=== PATIENT | female | born 1955 | race Caucasian/White ===

== ENCOUNTER 2021-07-15 06:54 | Day surgery (SDC) | payer MEDICARE ==
[2021-07-15] MEDS: Lactated Ringers 1,000 ML IV SCH ×2 (06:30→10:40)
[~2021-07-15 06:54] MED LIST: Acetaminophen 325 MG Tab ONE; Acetaminophen 325 MG Tab PO SCH; Lidocaine 1%/Sod Bicarbonate in NS 8.4% 1 ML Syringe IDERM PRN; Midazolam 1 MG/ML 2 ML SDV ONE; Morphine 8 MG, EPINEPHrine 0.3 MG, Cefuroxime 750 MG, Ketorolac 30 MG, Sodium Chloride ... PRN; Pregabalin 25 MG Cap ONE; Pregabalin 25 MG Cap PO SCH; Sodium Chloride 0.9% 10 ML Syringe FLUSH PRN; Sodium Chloride 0.9% 10 ML Syringe FLUSH SCH; Vancomycin 1 GM SDV ONE; oxyCODONE ER 10 MG TAB.ER ONE; oxyCODONE ER 10 MG TAB.ER PO SCH
[2021-07-15] MEDS ORDERED: Bupivacaine 0.25% 10 ML SDV ONE (07:08)
[2021-07-15] MEDS ORDERED: Triamcinolone Acetonide 40 MG/ML 1 ML SDV ONE (07:08)
[2021-07-15] MEDS ORDERED: Lidocaine 1% 5 ML VIAL ONE (07:20)
[2021-07-15] MEDS ORDERED: Propofol 200 MG/20 ML SDV ONE ×2 (07:20→08:26)
[2021-07-15] MEDS ORDERED: ceFAZolin 1 GM Vial ONE (07:34)
[2021-07-15] MEDS ORDERED: Ondansetron 4 MG/2 ML SDV ONE (07:54)
[2021-07-15] MEDS ORDERED: Ondansetron 4 MG/2 ML SDV IVPUSH PRN (09:11)
[2021-07-15] MEDS ORDERED: HYDROmorphone 0.5 MG/0.5 ML Syringe IVPUSH PRN (09:11)
[2021-07-15] MEDS ORDERED: fentaNYL 100 MCG/2 ML SDV IVPUSH PRN (09:11)
[2021-07-15] MEDS ORDERED: Ropivacaine 0.5% 5 MG/ML 30 ML SDV ONE (09:17)
[2021-07-15] MEDS ORDERED: traMADol 50 MG Tab PO ONE (12:02)
== END 2021-07-15 13:36 | disposition home or self-care (01) ==
LOC: JD.SDS 06:54
PROVIDERS: ATTEND Orthopaedic Surgery
DX: M17.0 Bilateral primary osteoarthritis of knee (principal); I10 Essential (primary) hypertension; K21.9 Gastro-esophageal reflux disease without esophagitis; Z91.011 Allergy to milk products; Z88.8 Allergy status to other drugs, medicaments and biological substances; Z88.5 Allergy status to narcotic agent; Z79.899 Other long term (current) drug therapy; Z90.49 Acquired absence of other specified parts of digestive tract; Z98.890 Other specified postprocedural states
CPT/HCPCS: 20610; 27447; 73560; 97110; 97116; 97161; A9270; C1713; C1776; J0171; J0690; J0697; J1885; J2250; J2270; J2370; J2405; J2704; J2795; J3301; J3370; J3490; J7120; 01402; 64447; 76942

== ENCOUNTER 2021-12-07 10:33 | Day surgery (SDC) | payer MEDICARE ==
[~2021-12-07 10:33] MED LIST changes: -Acetaminophen 325 MG Tab ONE; -Acetaminophen 325 MG Tab PO SCH; +Lactated Ringers 1,000 ML IV SCH; -Pregabalin 25 MG Cap ONE; -Pregabalin 25 MG Cap PO SCH; +Propofol 200 MG/20 ML SDV ONE; +Scopolamine 1.5 MG Transdermal Patch TRDERM ONE; +ceFAZolin 2 GM Vial ONE; +fentaNYL 100 MCG/2 ML SDV ONE; -oxyCODONE ER 10 MG TAB.ER ONE; -oxyCODONE ER 10 MG TAB.ER PO SCH
[2021-12-07] MEDS ORDERED: Scopolamine 1.5 MG Transdermal Patch TRDERM ONE (10:47)
[2021-12-07] MEDS ORDERED: Ropivacaine 0.5% 5 MG/ML 30 ML SDV ONE (11:13)
[2021-12-07] MEDS ORDERED: EPINEPHrine 1 MG/ML SDV ONE (11:13)
[2021-12-07] MEDS ORDERED: Lidocaine 1% 4 ML ONE (12:12)
[2021-12-07] MEDS ORDERED: Phenylephrine HCl In 0.9% NaCl 1 MG/10 ML Vial ONE (12:15)
[2021-12-07] MEDS ORDERED: fentaNYL 100 MCG/2 ML SDV IVPUSH PRN (12:46)
[2021-12-07] MEDS ORDERED: HYDROmorphone 0.5 MG/0.5 ML Syringe IVPUSH PRN (12:46)
[2021-12-07] MEDS ORDERED: Ondansetron 4 MG/2 ML SDV IVPUSH PRN (12:46)
[2021-12-07] MEDS ORDERED: Dexamethasone 4 MG/ML 5 ML MDV ONE (13:35)
[2021-12-07] MEDS ORDERED: Ondansetron 4 MG/2 ML SDV ONE (13:35)
[2021-12-07] MEDS ORDERED: traMADol 50 MG Tab PO PRN (15:18)
== END 2021-12-07 16:10 | disposition home or self-care (01) ==
LOC: JD.SDS 10:33
PROVIDERS: ATTEND Orthopaedic Surgery
DX: M17.11 Unilateral primary osteoarthritis, right knee (principal); I10 Essential (primary) hypertension; M85.89 Other specified disorders of bone density and structure, multiple sites; K21.9 Gastro-esophageal reflux disease without esophagitis; Z79.899 Other long term (current) drug therapy; Z88.8 Allergy status to other drugs, medicaments and biological substances; Z91.02 Food additives allergy status; Z91.011 Allergy to milk products; Z98.890 Other specified postprocedural states
CPT/HCPCS: 0055T; 27447; 36415; 73560; 85610; 97161; A9270; C1713; C1776; J0171; J0690; J0697; J1100; J1885; J2250; J2270; J2405; J2704; J2795; J3370; J7120; 01402; 64450; 76942; J3010